=== PATIENT | female | born 1975 | race Caucasian/White ===

== ENCOUNTER → 2018-03-19 | Outpatient (CLI) | payer MEDICARE, MEDICAID ==
--- NOTE | 2018-03-19 10:53 | RADIOLOGY REPORT (SQ) ---
EXAM DESCRIPTION: CHEST PA/LATERAL COMPLETED DATE/TIME: 03/19/2018 10:45 am REASON FOR STUDY: SOB COMPARISON: None. EXAM PARAMETERS: NUMBER OF VIEWS: two views TECHNIQUE: Digital Frontal and Lateral radiographic views of the chest acquired. RADIATION DOSE: NA LIMITATIONS: none FINDINGS: LUNGS AND PLEURA: No opacities, masses or pneumothorax. No pleural effusion. MEDIASTINUM AND HILAR STRUCTURES: No masses or contour abnormalities. HEART AND VASCULAR STRUCTURES: Heart normal size. No evidence for failure. BONES: No acute findings. HARDWARE: None in the chest. OTHER: No other significant finding. IMPRESSION: NO SIGNIFICANT RADIOGRAPHIC FINDING IN THE CHEST. TECHNICAL DOCUMENTATION: JOB ID: [id number] [employer]- All Rights Reserved Reading location - IP/workstation name: [email or web address]
== END ==
LOC: OD 10:29
PROVIDERS: ATTEND Family Medicine
DX: R06.02 Shortness of breath (principal)
CPT/HCPCS: 71046

== ENCOUNTER 2018-03-26 10:25 | Emergency (ER) | payer MEDICAID, MEDICARE ==
[2018-03-26] MEDS ORDERED: KETOROLAC TROMETHAMINE INJ/PF 30 MG/1 ML SDV IV ONE (10:43)
[2018-03-26] MEDS ORDERED: ONDANSETRON 4 MG TAB.RAPDIS PO ONE (10:43)
[2018-03-26] MEDS ORDERED: DICYCLOMINE HCL 20 MG TABLET PO ONE (10:45)
--- NOTE | 2018-03-26 10:49 | ER Document Report ---
ED Medical Screen (RME) - General Mode of Arrival: Ambulatory Information source: Patient TRAVEL OUTSIDE OF THE [place] IN LAST 30 DAYS: No - Related Data Home Medications: nexium. prozac 20 mg. multivitamin <MATHEW VALDES - Last Filed: 03/26/18 10:45> <CATALINA BEASLEY - Last Filed: 03/26/18 14:35> - General Chief Complaint: Cold Symptoms Stated Complaint: FLU LIKE SYMPTOMS Time Seen by Provider: 03/26/18 10:37 Notes: 42 years old female couple of months ago moved from [place]. With a history of depression, presents today with 3 months history of abdominal pain general malaise, cough, persistent abdominal pain and vomits when she coughs. Having alternating diarrhea and constipation Denies any fever chills or other constitutional symptoms Has been taking oxycodone which was prescribed to her in [place]. On examination obese, sharp right upper quadrant tenderness were noted. Also have diffuse mild tenderness throughout the abdomen. (MATHWE VALDES) The patient's chronic low back pain has been going on long enough that she had an MRI when she was living in [place] prior to July of this year. She was told she had a degenerative spine. She was seen in the office 10 days ago and got a prescription for albuterol inhaler which by history sounds like she did not use until perhaps 1 dose yesterday. She does take Adderall which she states is for her ADHD and PTSD. She is on Prozac for her depression. She is on Prevacid for her GERD. She has a history of migraines. She states her primary care provider told her to come to the emergency room for evaluation of her chronic abdomen and back pain. She has been coughing a lot in the past week, which may be the cause of the worsening low back pain and the pain in her sides. She reports that she had been taking her oxycodone for her pain and it did help. The oxycodone was prescribed when she was living in [place] and she no longer has this medication. She was given Toradol, and been to triage and this did not really help her pain very much. (CATALINA BEASLEY) - Related Data Allergies/Adverse Reactions: sertraline [From Zoloft] Allergy (Verified 03/26/18 10:30) sumatriptan [From Imitrex] Allergy (Verified 03/26/18 10:30) Past Medical History - Social History Chew tobacco use (# tins/day): No Frequency of alcohol use: None Drug Abuse: None Renal/ Medical History: Denies: Hx Peritoneal Dialysis <VITORGriselMATHEW - Last Filed: 03/26/18 10:45> - Vital signs Vitals: Temp Pulse Resp BP Pulse Ox 98.7 F 76 18 123/81 96 03/26/18 10:32 03/26/18 10:32 03/26/18 10:32 03/26/18 10:32 03/26/18 10:32 Course - Laboratory Result Diagrams: 03/26/18 10:49 03/26/18 12:48 <CATALINA BEASLEY - Last Filed: 03/26/18 14:35> - Vital Signs Vital signs: Temp Pulse Resp BP Pulse Ox 98.7 F 76 18 123/81 96 03/26/18 10:32 03/26/18 10:32 03/26/18 10:32 03/26/18 10:32 03/26/18 10:32 - Laboratory Laboratory results interpreted by me: 03/26/18 03/26/18 10:49 12:48 RDW 14.5 H Chloride 108 H AST 39 H Doctor's Discharge <VITORGriselABADMARJORIE - Last Filed: 03/26/18 10:45> <CATALINA BEASLEY - Last Filed: 03/26/18 14:35> - Discharge Clinical Impression: Chronic back pain greater than 3 months duration, Viral upper respiratory tract infection with cough Abdominal pain Qualifiers: Abdominal location: generalized Qualified Code(s): R10.84 - Generalized abdominal pain Condition: Stable Disposition: HOME, SELF-CARE Additional Instructions: Chronic Back Pain: Chronic back pain (pain persisting longer than three months) is a common problem. A medical evaluation can look for herniated disc, arthritis, osteoporosis, tumors, and infections. But at least half the time, there's no obvious treatable cause. Anxiety and depression tend to worsen back pain. Ibuprofen or other anti-inflammatory medicine can help. A heating pad, used for 15-20 minutes at a time, can ease pain. For this type of back pain, narcotic medicines should be avoided. Muscle relaxers are rarely helpful unless you're having spasms. Activity is important. Find an aerobic exercise program that your back can tolerate. Too much rest makes back pain worse. Specific back exercises are usually prescribed to strengthen the back and abdominal muscles. Often, a physical therapist can help. Avoid heavy lifting, working while bent over, or standing with both knees straight. Most back pain patients do better with a firm mattress. If new symptoms of a "herniated disc" (radiation of pain, numbness, or tingling down the back of the leg or weakness in the leg) occur, you should be re-examined. Upper Respiratory Illness: You have a viral infection of the respiratory passages -- a "cold." This common infection causes nasal congestion, drainage, and often sore throat and cough. It is caused by a virus and is highly contagious. The disease usually lasts a week or more. There is no "cure" for the viral infection -- it must run its course. If there is a complication, such as bacterial infection in the nose, sinuses, middle ear, or bronchial tubes, antibiotics may be required, but antibiotics won 't affect the virus. If you smoke, you should STOP!! Drink plenty of fluids. A humidifier may help. An expectorant medication or decongestant may make you more comfortable. Use acetaminophen or ibuprofen for fever or aches. See the doctor if fever persists over two or three days, if there is any significant worsening of your symptoms, or if you simply fail to improve as expected. I suspect the worsening pain in your low back, and the pain you are feeling in the size your abdomen may be related to the coughing you have been doing. Take the Tessalon Perles as prescribed to help suppress your cough. Adding Robitussin-DM may also be helpful. Be sure to drink plenty of fluids throughout the day and stay well-hydrated. Follow-up with your primary care provider to discuss all of your ongoing and persistent symptoms. RETURN TO THE EMERGENCY ROOM IF ANY NEW OR WORSENING SYMPTOMS. Prescriptions: Benzonatate [Tessalon Perles 100 mg Capsule] 100 mg PO Q8 #20 capsule Referrals: JORGE PEREZ MD [Primary Care Provider] - Follow up as needed
[2018-03-26 11:13] LABS: ABSOLUTE BASOPHILS # (AUTO) 0.1 10^3/uL (0.0-0.2); ABSOLUTE EOSINOPHILS # (AUTO) 0.2 10^3/uL (0.0-0.6); ABSOLUTE LYMPHOCYTES (AUTO) 2.4 10^3/uL (0.5-4.7); ABSOLUTE MONOCYTES (AUTO) 0.6 10^3/uL (0.1-1.4); ABSOLUTE NEUT (AUTO) 5.4 10^3/uL (1.7-8.2); EOSINOPHILS % (AUTO) 1.8 % (0-6); HEMATOCRIT 40.8 % (36.0-47.0); HEMOGLOBIN 13.6 g/dL (12.0-15.5); LYMPHOCYTES % (AUTO) 27.5 % (13-45); MEAN CORPUSCULAR HEMOGLOBIN 29.2 pg (27.0-33.4); MEAN CORPUSCULAR HGB CONC 33.4 g/dL (32.0-36.0); MEAN CORPUSCULAR VOLUME 88 fl (80-97); MONOCYTES % (AUTO) 7.3 % (3-13); PLATELET COUNT 299 10^3/uL (150-450); RED BLOOD COUNT 4.66 10^6/uL (3.72-5.28); RED CELL DISTRIBUTION WIDTH 14.5 % (11.5-14.0); SEGMENTED NEUTROPHILS % (AUTO) 62.4 % (42-78); TOTAL CELLS COUNTED % (AUTO) 100 %; WHITE BLOOD COUNT 8.6 10^3/uL (4.0-10.5)
[2018-03-26 11:29] LABS: APPEARANCE,URINE CLOUDY; BILIRUBIN,URINE NEGATIVE (NEGATIVE); COLOR,URINE YELLOW; GLUCOSE, URINE NEGATIVE (NEGATIVE); KETONES,URINE NEGATIVE (NEGATIVE); LEUKOCYTE ESTERASE,URINE NEGATIVE (NEGATIVE); NITRITE,URINE NEGATIVE (NEGATIVE); PROTEIN,URINE NEGATIVE (NEGATIVE); URINE SPECIFIC GRAVITY 1.033; UROBILINOGEN,URINE NEGATIVE mg/dL (<2.0)
--- NOTE | 2018-03-26 11:32 | RADIOLOGY REPORT (SQ) ---
EXAM DESCRIPTION: ACUTE ABDOMEN SERIES COMPLETED DATE/TIME: 03/26/2018 11:22 am REASON FOR STUDY: Abdominal pain COMPARISON: None. NUMBER OF VIEWS: Three views. TECHNIQUE: Frontal chest, supine abdomen and upright/decubitus abdomen radiographic images acquired. LIMITATIONS: None. FINDINGS: CHEST: Lungs clear of infiltrates. FREE AIR: None. No abnormal gas collections. BOWEL GAS PATTERN: Nonobstructive pattern. No dilated loops or air fluid levels. CALCIFICATIONS: No suspicious calcifications. HARDWARE: None in the abdomen. SOFT TISSUES: No gross mass or suggestion of organomegaly. BONES: No acute fracture. No worrisome bone lesions. OTHER: No other significant finding. IMPRESSION: NO RADIOGRAPHIC EVIDENCE FOR ACUTE ABDOMINAL DISEASE. TECHNICAL DOCUMENTATION: JOB ID: [id number] [employer]- All Rights Reserved Reading location - IP/workstation name: [email or web address]
--- NOTE | 2018-03-26 13:17 | RADIOLOGY REPORT (SQ) ---
EXAM DESCRIPTION: U/S ABDOMEN LIMITED W/O DOP COMPLETED DATE/TIME: 03/26/2018 12:43 pm REASON FOR STUDY: Right upper quadrant tenderness rule out cholecyst COMPARISON: Three-way abdomen series 03/26/2018 TECHNIQUE: Dynamic and static grayscale images acquired of the abdomen and recorded on PACS. Additio nal selected color Doppler and spectral images recorded. LIMITATIONS: Obese patient FINDINGS: PANCREAS: Not well seen LIVER: Diffuse increased echogenicity from fatty infiltration. Difficult to penetrate with the ultra sound energy. No focal masses. No gross intrahepatic biliary ductal dilatation LIVER VASCULATURE: Normal directional flow of the main portal vein and hepatic veins. GALLBLADDER: Surgically absent ULTRASOUND-DETECTED WERNER'S SIGN: Not applicable INTRAHEPATIC DUCTS AND COMMON DUCT: No intrahepatic biliary ductal dilatation. Common duct at the po rta hepatis 8 mm in diameter, within normal limits post cholecystectomy. Distal most common duct not well seen due to duodenum gas. INFERIOR VENA CAVA: Normal flow. AORTA: No aneurysm. RIGHT KIDNEY: Normal size. Normal echogenicity. No solid or suspicious masses. No hydronephrosis. No calcifications. PERITONEAL AND RIGHT PLEURAL SPACE: No ascites or effusions. OTHER: No other significant findings. IMPRESSION: Post cholecystectomy Fatty liver TECHNICAL DOCUMENTATION: JOB ID: [id number] [employer]- All Rights Reserved Reading location - IP/workstation name: [email or web address]
[2018-03-26 13:18] LABS: ALANINE AMINOTRANSFERASE 37 U/L (9-52); ALBUMIN 4.1 g/dL (3.5-5.0); ALKALINE PHOSPHATASE 90 U/L (38-126); ANION GAP 13 (5-19); ASPARTATE AMINO TRANSFERASE 39 U/L (14-36); BILIRUBIN,DIRECT 0.1 mg/dL (0.0-0.4); BILIRUBIN,TOTAL 0.3 mg/dL (0.2-1.3); BLOOD UREA NITROGEN 16 mg/dL (7-20); CALCIUM 9.5 mg/dL (8.4-10.2); CARBON DIOXIDE 24 mmol/L (22-30); CHLORIDE 108 mmol/L (98-107); GLUCOSE 99 mg/dL (75-110); LIPASE 39.6 U/L (23-300); POTASSIUM 4.6 mmol/L (3.6-5.0); SODIUM 144.8 mmol/L (137-145); TOTAL PROTEIN 7.6 g/dL (6.3-8.2)
--- NOTE | 2018-03-26 13:27 | ER Document Report ---
ED General - General Mode of Arrival: Ambulatory Information source: Patient TRAVEL OUTSIDE OF THE [place] IN LAST 30 DAYS: No - Related Data Home Medications: nexium. prozac 20 mg. multivitamin <MONIE RANGEL - Last Filed: 03/26/18 13:29> <CATALINA BEASLEY - Last Filed: 03/26/18 14:31> - General Chief Complaint: Cold Symptoms Stated Complaint: FLU LIKE SYMPTOMS Time Seen by Provider: 03/26/18 10:37 Notes: Patient is a 42 year old female with chronic abdominal and back pain, PTSD, ADHD presents to the emergency department complaining of multiple symptoms including abdominal pain, cough, posttussive emesis, congestion, swollen glands and back pain. Patient states she has had abdominal pain and back pain for several months and feels the symptoms are worsening. She states along with her abdominal pain she would have intermittent interchanging diarrhea and constipation. She states she has seen a provider concerning her abdominal pain but has been unable to pinpoint the etiology of her pain. She also states she was recently prescribed a ProAir inhaler approximately 10 days ago due to wheezing. She states she only has used it once yesterday and it helped her symptoms minimally. Patient states she recently moved from [place] where she was prescribed Percocet which she states is the only medication that will help her pain. Patient is currently prescribed Zoloft, Imitrex, Prevacid, Prozac and Adderall. (MONIE RANGEL) - Related Data Allergies/Adverse Reactions: sertraline [From Zoloft] Allergy (Verified 03/26/18 10:30) sumatriptan [From Imitrex] Allergy (Verified 03/26/18 10:30) Past Medical History - General Information source: Patient - Social History Smoking Status: Never Smoker Chew tobacco use (# tins/day): No Frequency of alcohol use: None Drug Abuse: None Family History: Reviewed & Not Pertinent Patient has suicidal ideation: No Patient has homicidal ideation: No - Past Medical History Cardiac Medical History: Reports: Hx Hypercholesterolemia Psychiatric Medical History: Reports: Hx Attention Deficit Hyperactivity Disorder, Hx Depression, Hx Post Traumatic Stress Disorder Past Surgical History: Reports: Hx Cholecystectomy, Hx Gynecologic Surgery, Hx Hysterectomy, Hx Orthopedic Surgery - RIGHT EAR, RIGHT HAND, LEFT SHOULDER, RIGHT FOOT <MONIE RANGEL - Last Filed: 03/26/18 13:29> Review of Systems - Review of Systems Constitutional: See HPI EENT: See HPI Cardiovascular: No symptoms reported Respiratory: See HPI, Cough Gastrointestinal: See HPI, Abdominal pain Genitourinary: No symptoms reported Female Genitourinary: No symptoms reported Musculoskeletal: See HPI, Back pain Skin: No symptoms reported Hematologic/Lymphatic: No symptoms reported Neurological/Psychological: No symptoms reported -: Yes All other systems reviewed and negative <MONIE RANGEL - Last Filed: 03/26/18 13:29> Physical Exam <MONIE RANGEL - Last Filed: 03/26/18 13:29> <CATALINA BEASLEY - Last Filed: 03/26/18 14:31> - Vital signs Vitals: Temp Pulse Resp BP Pulse Ox 98.7 F 76 18 123/81 96 03/26/18 10:32 03/26/18 10:32 03/26/18 10:32 03/26/18 10:32 03/26/18 10:32 - Notes Notes: GENERAL: Alert, interacts well. No acute distress. HEAD: Normocephalic, atraumatic. EYES: Pupils equal, round, and reactive to light. Extraocular movements intact. ENT: Oral mucosa moist, tongue midline. NECK: Full range of motion. Supple. Trachea midline. LUNGS: Rhonchi, expiratory wheezes. No respiratory distress. HEART: Regular rate and rhythm. No murmurs, gallops, or rubs. ABDOMEN: Soft, morbidly obese, non-tender. Non-distended. Bowel sounds present in all 4 quadrants. EXTREMITIES: Moves all 4 extremities spontaneously. NEUROLOGICAL: Alert and oriented x3. Normal speech. PSYCH: Normal affect, normal mood. SKIN: Warm, dry, normal turgor. No rashes or lesions noted. (MONIE RANGEL) Course - Laboratory Result Diagrams: 03/26/18 10:49 03/26/18 12:48 <MONIE RANGEL - Last Filed: 03/26/18 13:29> - Laboratory Result Diagrams: 03/26/18 10:49 03/26/18 12:48 - Diagnostic Test Radiology reviewed: Image reviewed, Reports reviewed - Acute abdominal series is unremarkable. Abdominal ultrasound shows fatty liver and surgically absent gallbladder. <CATALINA BEASLEY - Last Filed: 03/26/18 14:31> - Vital Signs Vital signs: Temp Pulse Resp BP Pulse Ox 98.7 F 76 18 123/81 96 03/26/18 10:32 03/26/18 10:32 03/26/18 10:32 03/26/18 10:32 03/26/18 10:32 - Laboratory Laboratory results interpreted by me: 03/26/18 03/26/18 10:49 12:48 RDW 14.5 H Chloride 108 H AST 39 H Discharge <CLAIRE,MONIE - Last Filed: 03/26/18 13:29> <CATALINA BEASLEY - Last Filed: 03/26/18 14:31> - Discharge Clinical Impression: Chronic back pain greater than 3 months duration, Viral upper respiratory tract infection with cough Abdominal pain Qualifiers: Abdominal location: generalized Qualified Code(s): R10.84 - Generalized abdominal pain Condition: Stable Disposition: HOME, SELF-CARE Additional Instructions: Chronic Back Pain: Chronic back pain (pain persisting longer than three months) is a common problem. A medical evaluation can look for herniated disc, arthritis, osteoporosis, tumors, and infections. But at least half the time, there's no obvious treatable cause. Anxiety and depression tend to worsen back pain. Ibuprofen or other anti-inflammatory medicine can help. A heating pad, used for 15-20 minutes at a time, can ease pain. For this type of back pain, narcotic medicines should be avoided. Muscle relaxers are rarely helpful unless you're having spasms. Activity is important. Find an aerobic exercise program that your back can tolerate. Too much rest makes back pain worse. Specific back exercises are usually prescribed to strengthen the back and abdominal muscles. Often, a physical therapist can help. Avoid heavy lifting, working while bent over, or standing with both knees straight. Most back pain patients do better with a firm mattress. If new symptoms of a "herniated disc" (radiation of pain, numbness, or tingling down the back of the leg or weakness in the leg) occur, you should be re-examined. Upper Respiratory Illness: You have a viral infection of the respiratory passages -- a "cold." This common infection causes nasal congestion, drainage, and often sore throat and cough. It is caused by a virus and is highly contagious. The disease usually lasts a week or more. There is no "cure" for the viral infection -- it must run its course. If there is a complication, such as bacterial infection in the nose, sinuses, middle ear, or bronchial tubes, antibiotics may be required, but antibiotics won 't affect the virus. If you smoke, you should STOP!! Drink plenty of fluids. A humidifier may help. An expectorant medication or decongestant may make you more comfortable. Use acetaminophen or ibuprofen for fever or aches. See the doctor if fever persists over two or three days, if there is any significant worsening of your symptoms, or if you simply fail to improve as expected. I suspect the worsening pain in your low back, and the pain you are feeling in the size your abdomen may be related to the coughing you have been doing. Take the Tessalon Perles as prescribed to help suppress your cough. Adding Robitussin-DM may also be helpful. Be sure to drink plenty of fluids throughout the day and stay well-hydrated. Follow-up with your primary care provider to discuss all of your ongoing and persistent symptoms. RETURN TO THE EMERGENCY ROOM IF ANY NEW OR WORSENING SYMPTOMS. Prescriptions: Benzonatate [Tessalon Perles 100 mg Capsule] 100 mg PO Q8 #20 capsule Referrals: JORGE PEREZ MD [Primary Care Provider] - Follow up as needed Prabhjot Attestation: 03/26/18 14:31 I personally performed the services described in the documentation, reviewed and edited the documentation which was dictated to the scribe in my presence, and it accurately records my words and actions. (CATALINA BEASLEY) Prabhjot Documentation - Scribe Written by Prabhjot:: Prabhjot Johnson, 03/26/2018 13:39 acting as scribe for :: Sean <MONIE RANGEL - Last Filed: 03/26/18 13:29>
[2018-03-26 14:39] VITALS: BP 124/76
== END 2018-03-26 14:39 | disposition home or self-care (01) ==
LOC: ER 10:25
DX: J06.9 Acute upper respiratory infection, unspecified (principal); B97.89 Other viral agents as the cause of diseases classified elsewhere; R05 Cough; R10.84 Generalized abdominal pain; G89.29 Other chronic pain; M54.9 Dorsalgia, unspecified; F43.10 Post-traumatic stress disorder, unspecified; F90.9 Attention-deficit hyperactivity disorder, unspecified type; R11.0 Nausea; R11.10 Vomiting, unspecified; R09.81 Nasal congestion; R59.9 Enlarged lymph nodes, unspecified
CPT/HCPCS: 99284; 96374; 36415; 83690; 85025; 80053; 81001; 74022; 76705; A9270 ×2; J1885; J3490; S0119

== ENCOUNTER 2018-04-23 09:24 | Day surgery (SDC) | payer MEDICAID, MEDICARE ==
[~2018-04-23 09:24] MED LIST: MIDAZOLAM 2 MG/2 ML INJ ONE; PROPOFOL INJ 200 MG/20 ML VIAL IV ONE
[2018-04-23] MEDS ORDERED: ALBUTEROL SULFATE 0.083% NEB 2.5 MG/3 ML AMPUL NEB ONE (10:06)
[2018-04-23] MEDS ORDERED: FENTANYL CITRATE INJ/PF 100 MCG/2 ML AMPUL IV PRN ×3 (10:43)
[2018-04-23] MEDS ORDERED: PROMETHAZINE HCL INJ 25 MG/1 ML VIAL IV PRN ×2 (10:43)
[2018-04-23] MEDS ORDERED: DIPHENHYDRAMINE HCL 50 MG/ML VIAL IV PRN (10:43)
[2018-04-23] MEDS ORDERED: MORPHINE SULFATE 10 MG/ML INJ IV PRN (10:43)
[2018-04-23] MEDS ORDERED: MEPERIDINE HCL/PF INJ 25 MG/1 ML DISP.SYRIN IV PRN (10:43)
--- NOTE | 2018-04-23 11:29 | Operative Report ---
Operative Report DATE OF SURGERY: 04/23/18 Operative Report: The risks, benefits and alternatives of the procedure including the risk of bleeding, perforation requiring surgery are explained to the patient in detail and informed consent is obtained. The patient is brought back to the operating room and placed in a left, lateral decubital position. Timeout was called. Propofol medication is administered. A rectal examination is done which did not reveal any masses, tears or fissures. An Olympus videoscope was introduced into the patient's rectum. It is carefully advanced all the way to the cecum. Cecum was identified by the usual anatomical landmarks including the ileocecal valve as well as the appendiceal office. Photodocumentation was obtained the scope was then sequentially pulled back via the various segments of the colon including the ascending colon, hepatic flexure, transverse colon, splenic f lexure, descending colon and finally into the rectosigmoid portions of the colon. Retroflexion maneuver is performed. The risks benefits and alternatives of the procedure explained to the patient in detail and informed consent is obtained.A GIF Olympus video scope was inserted into the patient's mouth and hypopharynx, the esophagus is identified intubated and insufflated, the scope was then advanced through the esophagus stomach and duodenum ,retroflexion maneuver is done, the esophagus stomach and first and second portions of the duodenum examined. PREOPERATIVE DIAGNOSIS: Abdominal discomfort. Blood in stool. Change in bowel habits. Nausea vomiting POSTOPERATIVE DIAGNOSIS: Diverticulosis left and right-sided. Colon polyp in the sigmoid area status post removal with biopsy suspicious for it being a hyperplastic polyp. Right colon inflammation status post biopsy. Internal hemorrhoids. Gastritis status post biopsy rule out Helicobacter pylori OPERATION: Colonoscopy with biopsy. EGD with biopsy SURGEON: NIKIA MOJICA ANESTHESIA: LMAC TISSUE REMOVED OR ALTERED: As noted above. COMPLICATIONS: None. ESTIMATED BLOOD LOSS: None. INTRAOPERATIVE FINDINGS: As noted above. PROCEDURE: Patient tolerated the procedure well. No immediate postprocedure comp occasions are noted. Patient discharged in good condition. Discharge date 04/23/2018. Discharge diet: Regular. Discharge activity: Regular. 2-3-week follow-up to discuss findings. Patient is instructed to call the office or proceed to the emergency room should there be any further problems or questions. Wait on the pathology. No etiology is found for the patient's complaints. Could be IBS
[2018-04-23] MEDS ORDERED: SIMETHICONE 80 MG TAB.CHEW ONE (11:42)
[2018-04-23] MEDS ORDERED: SIMETHICONE 80 MG TAB.CHEW PO ONE (12:00)
[2018-04-23 12:31] VITALS: BP 109/88
--- NOTE | 2018-04-23 22:55 | EKG REPORT ---
SEVERITY:- NORMAL ECG - SINUS RHYTHM : Confirmed by: Brunilda Negro MD 23-Apr-2018 22:53:46
== END 2018-04-23 12:30 | disposition home or self-care (01) ==
LOC: OROUT 09:24
PROVIDERS: ATTEND Internal Medicine Gastroenterology
DX: K57.30 Diverticulosis of large intestine without perforation or abscess without bleeding (principal); K64.8 Other hemorrhoids; K29.50 Unspecified chronic gastritis without bleeding; K63.5 Polyp of colon; K52.9 Noninfective gastroenteritis and colitis, unspecified; K21.9 Gastro-esophageal reflux disease without esophagitis; Z79.899 Other long term (current) drug therapy; Z79.51 Long term (current) use of inhaled steroids; Z88.8 Allergy status to other drugs, medicaments and biological substances
CPT/HCPCS: 43239; 45380; 81025; 88342 ×2; 88305 ×2; 93005; 93010; 94640; J2250; A9270 ×2; J2704; 813

== ENCOUNTER → 2018-07-27 | Outpatient (CLI) | payer MEDICAID, MEDICARE ==
[2018-07-27 09:53] LABS: ABSOLUTE EOSINOPHILS # (AUTO) 0.2 10^3/uL (0.0-0.6); ABSOLUTE LYMPHOCYTES (AUTO) 2.3 10^3/uL (0.5-4.7); ABSOLUTE MONOCYTES (AUTO) 0.5 10^3/uL (0.1-1.4); ABSOLUTE NEUT (AUTO) 4.1 10^3/uL (1.7-8.2); BASOPHILS % (AUTO) 0.5 % (0-2); EOSINOPHILS % (AUTO) 2.2 % (0-6); HEMATOCRIT 40.5 % (36.0-47.0); HEMOGLOBIN 13.6 g/dL (12.0-15.5); LYMPHOCYTES % (AUTO) 32.7 % (13-45); MEAN CORPUSCULAR HEMOGLOBIN 29.2 pg (27.0-33.4); MEAN CORPUSCULAR HGB CONC 33.7 g/dL (32.0-36.0); MEAN CORPUSCULAR VOLUME 87 fl (80-97); MONOCYTES % (AUTO) 6.6 % (3-13); PLATELET COUNT 298 10^3/uL (150-450); RED BLOOD COUNT 4.67 10^6/uL (3.72-5.28); RED CELL DISTRIBUTION WIDTH 14.7 % (11.5-14.0); TOTAL CELLS COUNTED % (AUTO) 100 %; WHITE BLOOD COUNT 7.1 10^3/uL (4.0-10.5)
[2018-07-27 10:02] LABS: ALANINE AMINOTRANSFERASE 27 U/L (9-52); ALKALINE PHOSPHATASE 106 U/L (38-126); ANION GAP 8 (5-19); ASPARTATE AMINO TRANSFERASE 26 U/L (14-36); BILIRUBIN,DIRECT 0.2 mg/dL (0.0-0.4); BILIRUBIN,TOTAL 0.4 mg/dL (0.2-1.3); BLOOD UREA NITROGEN 12 mg/dL (7-20); CALCIUM 9.8 mg/dL (8.4-10.2); CARBON DIOXIDE 25 mmol/L (22-30); CHLORIDE 109 mmol/L (98-107); GLUCOSE 118 mg/dL (75-110); SODIUM 142.4 mmol/L (137-145); TOTAL PROTEIN 7.7 g/dL (6.3-8.2); TRIGLYCERIDES 223 mg/dL (<150)
[2018-07-27 10:13] LABS: DIRECT LDL 157 mg/dL (<100)
[2018-07-27 10:17] LABS: VLDL CHOLESTEROL 44.6 mg/dL (10-31)
== END ==
LOC: OD 08:50
PROVIDERS: ATTEND Nurse Practitioner Psychiatric/Mental Health
DX: Z79.899 Other long term (current) drug therapy (principal)
CPT/HCPCS: 36415; 80053; 80061; 84443; 85025

== ENCOUNTER → 2018-08-18 | Outpatient (CLI) | payer MEDICARE, MEDICAID ==
--- NOTE | 2018-08-18 11:39 | RADIOLOGY REPORT (SQ) ---
EXAM DESCRIPTION: SHOULDER RIGHT 2 OR MORE VIEWS COMPLETED DATE/TIME: 08/18/2018 11:30 am REASON FOR STUDY: RT SHOULDER PAIN M25.511 PAIN IN RIGHT SHOULDER COMPARISON: None. NUMBER OF VIEWS: Three views. TECHNIQUE: Internal rotation, external rotation, and Y view images acquired of the right shoulder. LIMITATIONS: None. FINDINGS: MINERALIZATION: Normal. BONES: No acute fracture or dislocation. No worrisome bone lesions. No significant osteophytes. GLENOHUMERAL JOINT: No significant findings. ACROMIOCLAVICULAR JOINT: No large osteophytes. SOFT TISSUES: No calcifications. VISUALIZED RIBS, SPINE, AND LUNG: No other significant finding. OTHER: No other significant finding. IMPRESSION: NEGATIVE STUDY OF THE RIGHT SHOULDER. NO EXPLANATION FOR PAIN. TECHNICAL DOCUMENTATION: JOB ID: [id number] [employer]- All Rights Reserved Reading location - IP/workstation name: [email or web address]
== END ==
LOC: OD 11:07
PROVIDERS: ATTEND Family Medicine
DX: M25.511 Pain in right shoulder (principal)

== ENCOUNTER 2019-01-13 12:51 | Emergency (ER) | payer MEDICARE, MEDICAID ==
[2019-01-13] MEDS ORDERED: ASPIRIN 81 MG TABLET, CHEWABLE PO ONE (13:07)
--- NOTE | 2019-01-13 13:10 | ER Document Report ---
ED Medical Screen (RME) - General Chief Complaint: Neck Swelling Stated Complaint: NECK PAIN/SWELLING Time Seen by Provider: 01/13/19 12:58 Primary Care Provider: ERIBERTO PIMENTEL DO [Primary Care Provider] - Follow up as needed Mode of Arrival: Ambulatory Information source: Patient Notes: This 43-year-old female with history of [place] 3 years ago presents to the emergency department complaining of neck pain chest pain for over a month. Reports she has had sweats and been vomiting. Reports the neck pain started before the chest pain. Reports pain with touch to the base of her neck reports numbness and tingling going down both arms. Reports chest pain that worsens when she takes a deep breath. Also complains of feeling dizzy and the whole room is moving. I have greeted and performed a rapid initial assessment of this patient. A comprehensive ED assessment and evaluation of the patient, analysis of test results and completion of the medical decision making process will be conducted by additional ED providers. Dictation of this chart was performed using voice recognition software; therefore, there may be some unintended grammatical errors. TRAVEL OUTSIDE OF THE [place] IN LAST 30 DAYS: No - Related Data Allergies/Adverse Reactions: matthews Allergy (Verified 01/13/19 12:57) melon Allergy (Verified 01/13/19 12:57) sertraline [From Zoloft] Allergy (Verified 01/13/19 12:57) sumatriptan [From Imitrex] Allergy (Verified 01/13/19 12:57) Home Medications: prozac, metformin, nexium, trazadone, adderall Past Medical History - Social History Chew tobacco use (# tins/day): No Frequency of alcohol use: None Drug Abuse: None - Past Medical History Cardiac Medical History: Reports: Hx Hypercholesterolemia Denies: Hx Coronary Artery Disease, Hx Heart Attack, Hx Hypertension Pulmonary Medical History: Denies: Hx Asthma, Hx Bronchitis, Hx COPD, Hx Pneumonia Neurological Medical History: Denies: Hx Cerebrovascular Accident, Hx Seizures Renal/ Medical History: Denies: Hx Peritoneal Dialysis Musculoskeltal Medical History: Reports Hx Arthritis - OSTEOARTHRITIS (B/L HANDS - AND ALL OVER) Psychiatric Medical History: Reports: Hx Attention Deficit Hyperactivity Disorde r, Hx Depression, Hx Post Traumatic Stress Disorder Past Surgical History: Reports: Hx Cholecystectomy, Hx Gynecologic Surgery, Hx Hysterectomy, Hx Orthopedic Surgery - RIGHT EAR, RIGHT HAND, LEFT SHOULDER, RIGHT FOOT - Immunizations Hx Diphtheria, Pertussis, Tetanus Vaccination: Yes - 2018 History of Influenza Vaccine for 01/2017 - 06/2017 Season: No Physical Exam - Vital signs Vitals: Temp Pulse BP Pulse Ox 97.9 F 85 134/87 H 93 01/13/19 12:55 01/13/19 12:55 01/13/19 12:55 01/13/19 12:55 Course - Vital Signs Vital signs: Temp Pulse Resp BP Pulse Ox 97.9 F 85 134/87 H 93 01/13/19 12:55 01/13/19 12:55 01/13/19 12:55 01/13/19 12:55 Doctor's Discharge - Discharge Referrals: ERIBERTO PIMENTEL DO [Primary Care Provider] - Follow up as needed
[2019-01-13 13:34] LABS: ABSOLUTE EOSINOPHILS # (AUTO) 0.1 10^3/uL (0.0-0.6); ABSOLUTE LYMPHOCYTES (AUTO) 2.4 10^3/uL (0.5-4.7); ABSOLUTE MONOCYTES (AUTO) 0.5 10^3/uL (0.1-1.4); ABSOLUTE NEUT (AUTO) 5.5 10^3/uL (1.7-8.2); BASOPHILS % (AUTO) 0.5 % (0-2); EOSINOPHILS % (AUTO) 1.1 % (0-6); HEMATOCRIT 40.7 % (36.0-47.0); HEMOGLOBIN 13.9 g/dL (12.0-15.5); LYMPHOCYTES % (AUTO) 28.1 % (13-45); MEAN CORPUSCULAR HEMOGLOBIN 29.4 pg (27.0-33.4); MEAN CORPUSCULAR HGB CONC 34.1 g/dL (32.0-36.0); MEAN CORPUSCULAR VOLUME 86 fl (80-97); MONOCYTES % (AUTO) 6.1 % (3-13); PLATELET COUNT 280 10^3/uL (150-450); RED BLOOD COUNT 4.71 10^6/uL (3.72-5.28); RED CELL DISTRIBUTION WIDTH 14.1 % (11.5-14.0); SEGMENTED NEUTROPHILS % (AUTO) 64.2 % (42-78); TOTAL CELLS COUNTED % (AUTO) 100 %; WHITE BLOOD COUNT 8.6 10^3/uL (4.0-10.5)
--- NOTE | 2019-01-13 13:51 | RADIOLOGY REPORT (SQ) ---
EXAM DESCRIPTION: CHEST 2 VIEWS COMPLETED DATE/TIME: 01/13/2019 1:42 pm REASON FOR STUDY: cp COMPARISON: 03/19/2018 EXAM PARAMETERS: NUMBER OF VIEWS: two views TECHNIQUE: Digital Frontal and Lateral radiographic views of the chest acquired. RADIATION DOSE: NA LIMITATIONS: none FINDINGS: LUNGS AND PLEURA: No opacities, masses or pneumothorax. No pleural effusion. MEDIASTINUM AND HILAR STRUCTURES: No masses or contour abnormalities. HEART AND VASCULAR STRUCTURES: Heart normal size. No evidence for failure. BONES: No acute findings. HARDWARE: None in the chest. OTHER: No other significant finding. IMPRESSION: NO ACUTE RADIOGRAPHIC FINDING IN THE CHEST. TECHNICAL DOCUMENTATION: JOB ID: [id number] [employer]- All Rights Reserved Reading location - IP/workstation name: [email or web address]
[2019-01-13 13:53] LABS: ALBUMIN 4.4 g/dL (3.5-5.0); ALKALINE PHOSPHATASE 86 U/L (38-126); ANION GAP 14 (5-19); ASPARTATE AMINO TRANSFERASE 45 U/L (14-36); BILIRUBIN,DIRECT 0.1 mg/dL (0.0-0.4); BILIRUBIN,TOTAL 0.3 mg/dL (0.2-1.3); BLOOD UREA NITROGEN 19 mg/dL (7-20); CALCIUM 9.8 mg/dL (8.4-10.2); CARBON DIOXIDE 25 mmol/L (22-30); CHLORIDE 100 mmol/L (98-107); CREATINE KINASE 75 U/L (30-135); GLUCOSE 176 mg/dL (75-110); POTASSIUM 4.2 mmol/L (3.6-5.0); TOTAL PROTEIN 7.7 g/dL (6.3-8.2)
--- NOTE | 2019-01-13 13:59 | RADIOLOGY REPORT (SQ) ---
EXAM DESCRIPTION: CT CERVICAL SPINE WITHOUT COMPLETED DATE/TIME: 01/13/2019 1:44 pm REASON FOR STUDY: neck pain COMPARISON: None. TECHNIQUE: Axial images acquired through the cervical spine without intravenous contrast. Images re viewed with lung, soft tissue and bone windows. Reconstructed coronal and sagittal MPR images review ed. Images stored on PACS. All CT scanners at this facility use dose modulation, iterative reconstruction, and/or weight based d osing when appropriate to reduce radiation dose to as low as reasonably achievable (ALARA). [facility]: Dose Right [facility]: CareDose [facility]: Dose Right [facility]: Teradose 4D [facility]: Smart Wunsch-Brautkleid RADIATION DOSE: CT Rad equipment meets quality standard of care and radiation dose reduction techniq ues were employed. CTDIvol: 25.0 mGy. DLP: 463 mGy-cm. mGy. LIMITATIONS: None. FINDINGS: ALIGNMENT: There is straightening and reversal of the normal cervical lordosis MINERALIZATION: Normal. VERTEBRAL BODIES: No fractures or dislocation. DISCS: Moderate disc degenerative disease at C6-C7. FACETS, LATERAL MASSES, POSTERIOR ELEMENTS: No fractures. No dislocation. No acute findings. HARDWARE: None in the spine. VISUALIZED RIBS: No fractures. LUNG APICES AND SOFT TISSUES: No significant or acute findings. OTHER: No other significant finding. IMPRESSION: No fracture or static subluxation of the cervical spine. There is straightening and rev ersal of the normal cervical lordosis, likely positional and/or degenerative. There is focally moder ate disc degenerative disease and osteophytosis of C5-C6. TECHNICAL DOCUMENTATION: JOB ID: [id number] Quality ID # [id number]: Final reports with documentation of one or more dose reduction techniques (e.g., Au tomated exposure control, adjustment of the mA and/or kV according to patient size, use of iterative reconstruction technique) 2010 [employer]- All Rights Reserved Reading location - IP/workstation name: [email or web address]
[2019-01-13 14:05] LABS: CREATINE KINASE MB < 0.22 ng/mL (<4.55); TROPONIN I < 0.012 ng/mL
[2019-01-13] MEDS ORDERED: DIAZEPAM 5 MG TABLET PO ONE (16:15)
[2019-01-13 17:00] VITALS: BP 97/64
[2019-01-13] MEDS ORDERED: MAG HYDROX/AL HYDROX/SIMETH SUSP 30 ML UDCUP PO ONE (17:00)
[2019-01-13] MEDS ORDERED: METOCLOPRAMIDE HCL ORAL SOLN 10 MG/10 ML UDCUP PO ONE (17:00)
[2019-01-13] MEDS ORDERED: LIDOCAINE 2% VISCOUS SOLN 20 ML UDCUP PO ONE (17:00)
--- NOTE | 2019-01-13 17:23 | ER Document Report ---
ED General - General Chief Complaint: Neck Swelling Stated Complaint: NECK PAIN/SWELLING Time Seen by Provider: 01/13/19 12:58 Primary Care Provider: ERIBERTO PIMENTEL DO [Primary Care Provider] - Follow up as needed Mode of Arrival: Ambulatory Notes: [facility] HPI: This 43-year-old female with history of [place] 3 years ago presents to the emergency department complaining of neck pain chest pain for over a month. Reports she has had sweats and been vomiting. Reports the neck pain started before the chest pain. Reports pain with touch to the base of her neck reports numbness and tingling going down both arms. Reports chest pain that worsens when she takes a deep breath. Also complains of feeling dizzy and the whole room is moving. TRAVEL OUTSIDE OF THE [place] IN LAST 30 DAYS: No - Related Data Allergies/Adverse Reactions: matthews Allergy (Verified 01/13/19 12:57) melon Allergy (Verified 01/13/19 12:57) sertraline [From Zoloft] Allergy (Verified 01/13/19 12:57) sumatriptan [From Imitrex] Allergy (Verified 01/13/19 12:57) Home Medications: prozac, metformin, nexium, trazadone, adderall Past Medical History - General Information source: Patient - Social History Smoking Status: Never Smoker Chew tobacco use (# tins/day): No Frequency of alcohol use: None Drug Abuse: None Family History: Reviewed & Not Pertinent Patient has suicidal ideation: No Patient has homicidal ideation: No - Past Medical History Cardiac Medical History: Reports: Hx Hypercholesterolemia Denies: Hx Coronary Artery Disease, Hx Heart Attack, Hx Hypertension Pulmonary Medical History: Denies: Hx Asthma, Hx Bronchitis, Hx COPD, Hx Pneumonia Neurological Medical History: Reports: Hx Migraine. Denies: Hx Cerebrovascular Accident, Hx Seizures Renal/ Medical History: Denies: Hx Peritoneal Dialysis GI Medical History: Reports: Hx Gastroesophageal Reflux Disease Musculoskeletal Medical History: Reports Hx Arthritis - OSTEOARTHRITIS (B/L HANDS - AND ALL OVER) Psychiatric Medical History: Reports: Hx Attention Deficit Hyperactivity Disorder, Hx Depression, Hx Post Traumatic Stress Disorder Past Surgical History: Reports: Hx Cholecystectomy, Hx Gynecologic Surgery, Hx Hysterectomy, Hx Orthopedic Surgery - RIGHT EAR, RIGHT HAND, LEFT SHOULDER, RIGHT FOOT, Hx Tonsillectomy - Immunizations Hx Diphtheria, Pertussis, Tetanus Vaccination: Yes - 2018 Physical Exam - Vital signs Vitals: Temp Pulse BP Pulse Ox 97.9 F 85 134/87 H 93 01/13/19 12:55 01/13/19 12:55 01/13/19 12:55 01/13/19 12:55 Course - Re-evaluation Re-evalutation: Patient appears well, nontoxic and vital signs are within normal limits. Patient's physical exam is unremarkable other than tenderness in the cervical area. CT shows muscle spasm. Patient denies any chest pain or shortness of breath during her emergency department stay. She is requesting to go home. Patient will be discharged home on muscle relaxers and encouraged close follow- up with primary care physician and return cautions were discussed. Laboratory 01/13/19 01/13/19 01/13/19 13:20 13:20 13:20 WBC 8.6 RBC 4.71 Hgb 13.9 Hct 40.7 MCV 86 MCH 29.4 MCHC 34.1 RDW 14.1 H Plt Count 280 Lymph % (Auto) 28.1 [place] % (Auto) 6.1 Eos % (Auto) 1.1 Baso % (Auto) 0.5 Absolute Neuts (auto) 5.5 Absolute Lymphs (auto) 2.4 Absolute Monos (auto) 0.5 Absolute Eos (auto) 0.1 Absolute Basos (auto) 0.0 Seg Neutrophils % 64.2 Sodium 138.8 Potassium 4.2 Chloride 100 Carbon Dioxide 25 Anion Gap 14 BUN 19 Creatinine 1.24 Est GFR ( Amer) 57 L Est GFR (MDRD) Non-Af 47 L Glucose 176 H Calcium 9.8 Total Bilirubin 0.3 Direct Bilirubin 0.1 Neonat Total Bilirubin Not Reportable Neonat Direct Bilirubin Not Reportable Neonat Indirect Bili Not Reportable AST 45 H ALT 44 Alkaline Phosphatase 86 Creatine Kinase 75 CK-MB (CK-2) < 0.22 Troponin I < 0.012 Total Protein 7.7 Albumin 4.[address] 01/13/19 13:07 IMPRESSION: No fracture or static subluxation of the cervical spine. There is straightening and reversal of the normal cervical lordosis, likely positional and/or degenerative. There is focally moderate disc degenerative disease and osteophytosis of C5-C6. Chest X-Ray 01/13/19 13:07 IMPRESSION: NO ACUTE RADIOGRAPHIC FINDING IN THE CHEST. - Vital Signs Vital signs: Temp Pulse Resp BP Pulse Ox 98.4 F 78 16 97/64 L 94 01/13/19 16:59 01/13/19 16:59 01/13/19 16:59 01/13/19 16:59 01/13/19 16:59 - Laboratory Result Diagrams: 01/13/19 13:20 01/13/19 13:20 Laboratory results interpreted by me: 01/13/19 01/13/19 13:20 13:20 RDW 14.1 H Est GFR ( Amer) 57 L Est GFR (MDRD) Non-Af 47 L Glucose 176 H AST 45 H Discharge - Discharge Clinical Impression: Cervical paraspinal muscle spasm Chest pain Qualifiers: Chest pain type: unspecified Qualified Code(s): R07.9 - Chest pain, unspecified Condition: Stable Disposition: HOME, SELF-CARE Instructions: Family Physicians / Practices Additional Instructions: Your cardiac work-up today was unremarkable. The CAT scan of your neck show that you have some muscle spasms. Please take medication as prescribed. You may also take Tylenol or ibuprofen for pain. Please follow-up with your primary care provider, call them to get an appointment within the next 1 to 2 weeks. Return to the emergency department with any new or worsening symptoms. Prescriptions: Methocarbamol [Robaxin 750 mg Tablet] 750 mg PO Q4 #30 tablet Referrals: ERIBERTO PIMENTEL DO [Primary Care Provider] - Follow up as needed
--- NOTE | 2019-01-15 08:51 | EKG REPORT ---
SEVERITY:- BORDERLINE ECG - SINUS RHYTHM LEFT AXIS DEVIATION CONSIDER ANTERIOR INFARCT : Confirmed by: Glenny Louis 15-Jan-2019 08:49:18
== END 2019-01-13 17:29 | disposition home or self-care (01) ==
LOC: ER 12:51
DX: M62.838 Other muscle spasm (principal); M50.322 Other cervical disc degeneration at C5-C6 level; R07.9 Chest pain, unspecified; I25.2 Old myocardial infarction; R20.0 Anesthesia of skin; R20.2 Paresthesia of skin; R42 Dizziness and giddiness; K21.9 Gastro-esophageal reflux disease without esophagitis; F90.9 Attention-deficit hyperactivity disorder, unspecified type; F32.9 Major depressive disorder, single episode, unspecified; Z79.84 Long term (current) use of oral hypoglycemic drugs; Z79.899 Other long term (current) drug therapy; Z91.018 Allergy to other foods; Z88.8 Allergy status to other drugs, medicaments and biological substances; Z88.6 Allergy status to analgesic agent
CPT/HCPCS: 93005; 99284; 36415; 82553; 82550; 85025; 80053; 84484; 71046; 72125; 93010; A9270 ×3; J3490